=== PATIENT | female | born 1940 ===

== ENCOUNTER 2018-07-12 13:07 | Emergency (ER) | payer MEDICARE, OTHER ==
[2018-07-12 15:02] VITALS: BP 142/70
--- NOTE | 2018-07-12 15:15 | UC ---
Skin Complaint HPI - HPI Summary HPI Summary: 78-year-old female presents with tick bite to her right upper thigh. States she discovered the tick this morning while taking a shower and removed immediately. States she believes that the tick was attached for less than 24 hours. States tick was not engorged at time of removal. Complains of some mild erythema at the site of the bite. Denies fever, chills, flulike symptoms, myalgias, joint pain or swelling. - History of Current Complaint Chief Complaint: UCSkin Time Seen by Provider: 07/12/18 14:58 Stated Complaint: TICK BITE Hx Obtained From: Patient Pain Intensity: 5 - Allergy/Home Medications Allergies/Adverse Reactions: Allergies Allergy/AdvReac Type Severity Reaction Status Date / Time No Known Allergies Allergy Verified 07/12/18 15:02 Home Medications: Home Medications A[facility]s Eye Vitamin 2 tab DAILY 07/12/18 [History Confirmed 07/12/18] Ascorbic Acid TAB* [Vitamin C TAB*] 1,000 mg PO DAILY 07/12/18 [History Confirmed 07/12/18] Fexofenadine (NF) [Kami 180 (NF)] 180 mg PO DAILY 07/12/18 [History Confirmed 07/12/18] Losartan Potassium [Cozaar] 50 mg PO DAILY 07/12/18 [History Confirmed 07/12/18] amLODIPine TAB* [Norvasc 5 mg TAB*] 5 mg PO DAILY 07/12/18 [History Confirmed ] PMH/Surg Hx/FS Hx/Imm Hx Previously Healthy: Yes Cardiovascular History: Hypertension - Surgical History Surgical History: Yes Surgery Procedure, Year, and Place: left parathyroid removal. left side lumpectomy. cataract bilat - Family History Known Family History: Positive: Non-Contributory - Social History Occupation: Retired Lives: With Family Alcohol Use: Daily Alcohol Amount: glass of wine Substance Use Type: None Smoking Status (MU): Former Smoker When Did the Patient Quit Smoking/Using Tobacco: 24 years ago Review of Systems All Other Systems Reviewed And Are Negative: Yes Constitutional: Negative: Fever, Chills, Fatigue Skin: Positive: Bruising - HPI, Other Respiratory: Positive: Negative Cardiovascular: Positive: Negative Gastrointestinal: Positive: Negative Genitourinary: Positive: Negative Musculoskeletal: Negative: Arthralgia, Myalgia Neurological: Positive: Negative Is Patient Immunocompromised?: No Physical Exam - Summary Physical Exam Summary: GENERAL APPEARANCE: Well developed, well nourished, alert and cooperative, and appears to be in no acute distress. CARDIAC: Normal S1 and S2. No S3, S4 or murmurs. Rhythm is regular. There is no peripheral edema, cyanosis or pallor. Extremities are warm and well perfused. Capillary refill is less than 2 seconds. Peripheral pulses intact. LUNGS: Clear to auscultation without rales, rhonchi, wheezing or diminished breath sounds. ABDOMEN: Positive bowel sounds. Soft, nondistended, nontender. No guarding or rebound. No masses or hepatosplenomegally. MUSKULOSKELETAL: ROM intact to all extremities. No joint erythema or tenderness. Normal muscular development. Normal gait. SKIN: Small area of erythema approximately 1 cm in diameter with a central area of darkening to the anterior proximal right upper thigh. Triage Information Reviewed: Yes Vital Signs: Initial Vital Signs Temp 98.4 F 07/12/18 14:57 Pulse 81 07/12/18 14:57 Resp 16 07/12/18 14:57 BP 142/70 07/12/18 14:57 Pulse Ox 93 07/12/18 14:57 Vital Signs Reviewed: Yes Course/Dx - Course Course Of Treatment: 78-year-old female presents with tick bite to her right upper thigh. States she discovered the tick this morning while taking a shower and removed immediately. States she believes that the tick was attached for less than 24 hours. States tick was not engorged at time of removal. Complains of some mild erythema at the site of the bite. Denies fever, chills, flulike symptoms, myalgias, joint pain or swelling. Afebrile. Vital signs stable. Exam remarkable for a small area of erythema approximately 1 cm in diameter with a central area of darkening to her anterior proximal right upper thigh. Recommending watchful waiting at this time as patient does not meet criteria for prophylactic treatment. Discussed symptoms of Lyme disease with the patient and she will monitor for these over the next 3 weeks and seek treatment should any occur. - Differential Diagnoses - Skin Complaint Differential Diagnoses: Local Allergic Reaction, Tick Born Illness - Diagnoses Provider Diagnosis: Tick bite of right thigh Discharge - Sign-Out/Discharge Documenting (check all that apply): Patient Departure All imaging exams completed and their final reports reviewed: No Studies - Discharge Plan Condition: Stable Disposition: HOME Patient Education Materials: Tick Bite (ED) Referrals: Nithya Leung MD [Primary Care Provider] - If Needed Additional Instructions: Based on your history there is no indication for treating for Lyme disease at this time. You will need to monitor for symptoms for Lyme over the next 3 weeks including a bullseye rash, flu-like symptoms, muscle pain, joint pain or swelling. You should seek immediate medical attention should any of these occur. - Billing Disposition and Condition Condition: STABLE Disposition: Home
== END 2018-07-12 15:24 | disposition home or self-care (01) ==
LOC: UCCORT 13:07
DX: S70.361A Insect bite (nonvenomous), right thigh, initial encounter (principal); W57.XXXA Bitten or stung by nonvenomous insect and other nonvenomous arthropods, initial encounter; I10 Essential (primary) hypertension; Z79.899 Other long term (current) drug therapy; Z87.891 Personal history of nicotine dependence
CPT/HCPCS: 99211; G0463